=== PATIENT | female | born 1965 | race Caucasian/White ===

== ENCOUNTER 2024-09-29 14:18 | Outpatient (RCR) | payer BC, SELFPAY ==
[2024-09-29 14:07] VITALS: BMI 33.9
[2024-09-29 14:28] VITALS: BMI 33.9
== END 2024-12-21 12:18 | disposition home or self-care (01) ==
LOC: ANHDMC 14:18
PROVIDERS: Visit Provider Internal Medicine Endocrinology, Diabetes & Metabolism
DX: E11.65 Type 2 diabetes mellitus with hyperglycemia (principal); Z71.3 Dietary counseling and surveillance
CPT/HCPCS: 97802